=== PATIENT | male | born 1990 | race African-American/Black ===

== ENCOUNTER 2020-11-30 23:03 | Emergency (ER) | payer OTHER ==
[~2020-11-30] VITALS: Ht 185.4 cm; Wt 72.6 kg
[2020-12-01 00:13] VITALS: BP 146/91
[2020-12-01] MEDS ORDERED: KETOROLAC TROMETH 60MG/2ML VIAL IM ONE (01:30)
[2020-12-01] MEDS ORDERED: methylPREDNISolone SOD SUCC 125 MG/2 ML VL IM ONE (01:30)
== END 2020-12-01 02:22 | disposition home or self-care (01) ==
LOC: ER 23:03
DX: R51.9 Headache, unspecified (principal); R68.84 Jaw pain
CPT/HCPCS: 70486; 96372; 99284; J1885; J2930